=== PATIENT | male | born 1960 | race Caucasian/White ===

== ENCOUNTER → 2018-01-26 09:18 | Outpatient (CLI) | payer SELFPAY ==
[2018-01-26 10:50] LABS: ALB/GLOB Ratio 1.1 RATIO (0.9-2.4); AST(SGOT) 21 U/L (15-37); Alanine Aminotransfer ALT/SGPT 39 U/L (16-61); Albumin, Serum 3.8 g/dL (3.2-5.0); Alkaline Phosphatase 85 U/L (45-117); Anion Gap 7 (5-15); BUN 21 mg/dL (7-18); BUN/Creat Ratio 21.8 RATIO (10-20); Calcium,Total 8.7 mg/dL (8.5-10.1); Chloride 103 mmol/L (98-107); Creatinine, Serum 0.96 mg/dL (0.70-1.30); EST Glomerular Filtration Rate 85 mL/min (>60); Est Glom Filt Rate - Afr Amer 103 mL/min (>60); Globulin 3.6 g/dL (2.2-4.2); Glucose 143 mg/dL (74-106); Potassium 3.9 mmol/L (3.5-5.1); Protein, Total 7.4 g/dL (6.4-8.2); Sodium Level 136 mmol/L (136-145)
== END ==
PROVIDERS: Family Provider Family Medicine; PCP Family Medicine; Visit Provider Family Medicine
DX: E11.8 Type 2 diabetes mellitus with unspecified complications (principal)
CPT/HCPCS: 36415; 80053; 84403

== ENCOUNTER → 2019-03-11 | Outpatient (CLI) | payer SELFPAY ==
[2019-03-11 10:22] LABS: ALB/GLOB Ratio 1.1 RATIO (0.9-2.4); AST(SGOT) 21 U/L (15-37); Alanine Aminotransfer ALT/SGPT 37 U/L (16-61); Albumin, Serum 3.8 g/dL (3.2-5.0); Alkaline Phosphatase 77 U/L (45-117); Anion Gap 5 (5-15); BUN 18 mg/dL (7-18); BUN/Creat Ratio 19.3 RATIO (10-20); Calcium,Total 8.7 mg/dL (8.5-10.1); Chloride 104 mmol/L (98-107); Cholesterol 174 mg/dL (200); Creatinine, Serum 0.93 mg/dL (0.70-1.30); EST Glomerular Filtration Rate 88 mL/min (>60); Est Glom Filt Rate - Afr Amer 107 mL/min (>60); Globulin 3.5 g/dL (2.2-4.2); Glucose 121 mg/dL (74-106); High Density Lipoprotein 43 mg/dL; Potassium 3.9 mmol/L (3.5-5.1); Protein, Total 7.3 g/dL (6.4-8.2); Sodium Level 136 mmol/L (136-145); Triglycerides 62 mg/dL; Very Low Density Lipoprotein 12 mg/dL (5-40)
== END | disposition home or self-care (01) ==
PROVIDERS: Family Provider Family Medicine; PCP Family Medicine; Referring Provider Family Medicine; Visit Provider Family Medicine
DX: E11.8 Type 2 diabetes mellitus with unspecified complications (principal)
CPT/HCPCS: 36415; 80053; 80061

== ENCOUNTER → 2020-03-29 11:09 | Outpatient (CLI) | payer SELFPAY ==
[2020-03-29 15:50] LABS: AST(SGOT) 24 U/L (15-37); Alanine Aminotransfer ALT/SGPT 64 U/L (16-61); Albumin, Serum 3.9 g/dL (3.2-5.0); Alkaline Phosphatase 99 U/L (45-117); Anion Gap 8 (5-15); BUN 20 mg/dL (7-18); BUN/Creat Ratio 20.7 RATIO (10-20); Calcium,Total 8.9 mg/dL (8.5-10.1); Chloride 99 mmol/L (98-107); Cholesterol 137 mg/dL (200); Creatinine, Serum 0.97 mg/dL (0.70-1.30); EST Glomerular Filtration Rate 84 mL/min (>60); Est Glom Filt Rate - Afr Amer 102 mL/min (>60); Globulin 3.8 g/dL (2.2-4.2); Glucose 187 mg/dL (74-106); High Density Lipoprotein 40 mg/dL; Potassium 3.8 mmol/L (3.5-5.1); Protein, Total 7.7 g/dL (6.4-8.2); Sodium Level 134 mmol/L (136-145); Triglycerides 65 mg/dL; Very Low Density Lipoprotein 13 mg/dL (5-40)
== END ==
PROVIDERS: PCP Family Medicine; Referring Provider Family Medicine; Visit Provider Family Medicine
DX: E11.8 Type 2 diabetes mellitus with unspecified complications (principal)
CPT/HCPCS: 36415; 80053; 80061

== ENCOUNTER 2022-01-28 08:47 | Outpatient (CLI) | payer SELFPAY ==
[2022-01-28 10:38] LABS: ALB/GLOB Ratio 1.1 RATIO (0.9-2.4); AST(SGOT) 27 U/L (15-37); Alanine Aminotransfer ALT/SGPT 48 U/L (16-61); Albumin, Serum 3.8 g/dL (3.2-5.0); Alkaline Phosphatase 92 U/L (45-117); Anion Gap 8 (5-15); BUN 17 mg/dL (7-18); BUN/Creat Ratio 18.3 RATIO (10-20); Calcium,Total 8.8 mg/dL (8.5-10.1); Chloride 102 mmol/L (98-107); Cholesterol 133 mg/dL (200); Creatinine, Serum 0.93 mg/dL (0.70-1.30); EST Glomerular Filtration Rate 88 mL/min (>60); Est Glom Filt Rate - Afr Amer 106 mL/min (>60); Globulin 3.6 g/dL (2.2-4.2); Glucose 206 mg/dL (74-106); High Density Lipoprotein 38 mg/dL; Protein, Total 7.4 g/dL (6.4-8.2); Sodium Level 133 mmol/L (136-145); Triglycerides 110 mg/dL; Very Low Density Lipoprotein 22 mg/dL (5-40)
== END 2022-01-28 23:59 | disposition home or self-care (01) ==
LOC: MFPLAB 08:47
PROVIDERS: PCP Family Medicine; Visit Provider Family Medicine
DX: E11.8 Type 2 diabetes mellitus with unspecified complications (principal)
CPT/HCPCS: 36415; 80053; 80061

== ENCOUNTER → 2023-01-23 | Outpatient (CLI) | payer SELFPAY ==
[2023-01-23 10:35] LABS: ALB/GLOB Ratio 0.9 RATIO (0.9-2.4); AST(SGOT) 32 U/L (15-37); Alanine Aminotransfer ALT/SGPT 62 U/L (16-61); Albumin, Serum 3.7 g/dL (3.2-5.0); Alkaline Phosphatase 109 U/L (45-117); Anion Gap 8 (5-15); BUN 24 mg/dL (7-18); BUN/Creat Ratio 25.4 RATIO (10-20); Calcium,Total 9.5 mg/dL (8.5-10.1); Chloride 103 mmol/L (98-107); Cholesterol 125 mg/dL (200); Creatinine, Serum 0.94 mg/dL (0.70-1.30); EST Glomerular Filtration Rate 86 mL/min (>60); Est Glom Filt Rate - Afr Amer 104 mL/min (>60); Globulin 4.1 g/dL (2.2-4.2); Glucose 111 mg/dL (74-106); High Density Lipoprotein 35 mg/dL; Potassium 3.8 mmol/L (3.5-5.1); Protein, Total 7.8 g/dL (6.4-8.2); Sodium Level 135 mmol/L (136-145); Thyroid Stim Hormone (TSH) 7.31 uIU/mL (0.358-3.74); Triglycerides 81 mg/dL; Very Low Density Lipoprotein 16 mg/dL (5-40)
[2023-01-24 11:20] LABS: T4 Free Direct 0.86 ng/dL (0.76-1.46)
== END | disposition home or self-care (01) ==
PROVIDERS: PCP Family Medicine; Referring Provider Family Medicine; Visit Provider Family Medicine
DX: E07.9 Disorder of thyroid, unspecified (principal)
CPT/HCPCS: 36415; 80053; 80061; 84439; 84443

== ENCOUNTER → 2023-12-24 | Outpatient (CLI) | payer SELFPAY ==
[2023-12-24 11:51] LABS: ALB/GLOB Ratio 0.9 RATIO (0.9-2.4); AST(SGOT) 30 U/L (15-37); Alanine Aminotransfer ALT/SGPT 56 U/L (16-61); Albumin, Serum 3.7 g/dL (3.2-5.0); Alkaline Phosphatase 101 U/L (45-117); Anion Gap 5 (5-15); BUN 16 mg/dL (7-18); BUN/Creat Ratio 17.9 RATIO (10-20); Calcium,Total 9.4 mg/dL (8.5-10.1); Chloride 101 mmol/L (98-107); Cholesterol 131 mg/dL (200); Creatinine, Serum 0.89 mg/dL (0.70-1.30); EST Glomerular Filtration Rate 91 mL/min (>60); Est Glom Filt Rate - Afr Amer 110 mL/min (>60); Glucose 150 mg/dL (74-106); High Density Lipoprotein 35 mg/dL; PSA,Total - Annual Screen 1.13 ng/mL (0.00-4.00); Potassium 3.9 mmol/L (3.5-5.1); Protein, Total 7.7 g/dL (6.4-8.2); Sodium Level 131 mmol/L (136-145); T4 Free Direct 0.92 ng/dL (0.76-1.46); Thyroid Stim Hormone (TSH) 8.31 uIU/mL (0.358-3.74); Triglycerides 105 mg/dL; Very Low Density Lipoprotein 21 mg/dL (5-40)
== END | disposition home or self-care (01) ==
LOC: MFPLAB 09:20
PROVIDERS: PCP Family Medicine; Visit Provider Family Medicine
DX: Z12.5 Encounter for screening for malignant neoplasm of prostate (principal); E03.8 Other specified hypothyroidism
CPT/HCPCS: 36415; 80053; 80061; 84153; 84439; 84443; G0103

== ENCOUNTER → 2024-03-29 | Outpatient (CLI) | payer SELFPAY ==
[2024-03-29 10:59] LABS: Anion Gap 7 (5-15); BUN 18 mg/dL (7-18); BUN/Creat Ratio 19.7 RATIO (10-20); Calcium,Total 9.3 mg/dL (8.5-10.1); Chloride 101 mmol/L (98-107); Creatinine, Serum 0.91 mg/dL (0.70-1.30); EST Glomerular Filtration Rate 89 mL/min (>60); Est Glom Filt Rate - Afr Amer 107 mL/min (>60); Glucose 199 mg/dL (74-106); Potassium 4.1 mmol/L (3.5-5.1); Sodium Level 132 mmol/L (136-145); T4 Free Direct 1.21 ng/dL (0.76-1.46); Thyroid Stim Hormone (TSH) 2.64 uIU/mL (0.358-3.74)
== END | disposition home or self-care (01) ==
LOC: MFPLAB 08:32
PROVIDERS: PCP Family Medicine; Visit Provider Family Medicine
DX: E03.9 Hypothyroidism, unspecified (principal)
CPT/HCPCS: 36415; 80048; 84439; 84443

== ENCOUNTER → 2025-08-18 | Outpatient (CLI) | payer SELFPAY ==
[2025-08-18 12:44] LABS: Creatinine, Urine (random) 78.50 mg/dL (39.00-259.00); Microalbumin,Random Urine < 12.0 mg/L (<20 mg/L)
[2025-08-18 12:52] LABS: AST(SGOT) 22 U/L (<=37); Alanine Aminotransfer ALT/SGPT 31 U/L (<=46); Albumin, Serum 4.2 g/dL (3.4-4.8); Alkaline Phosphatase 84 U/L (40-129); Anion Gap 11 (5-15); BUN 25 mg/dL (4-19); BUN/Creat Ratio 28.8 RATIO (10-20); Calcium,Total 9.7 mg/dL (7.6-11.0); Carbon Dioxide 24.2 mmol/L (21.0-32.0); Chloride 101 mmol/L (98-108); Cholesterol 169 mg/dL (<=200); Globulin 2.9 g/dL (2.2-4.2); Glucose 154 mg/dL (70-99); Low Density Lipoprotein Calc. 110 mg/dL; PSA,Total - Annual Screen 1.56 ng/mL (0.02-4.00); Potassium 5.0 mmol/L (3.3-5.1); Triglycerides 60 mg/dL; Very Low Density Lipoprotein 12 mg/dL (5-40); cholesterol:hdl ratio screen 3.56
== END | disposition home or self-care (01) ==
LOC: MFPLAB 09:12
PROVIDERS: PCP Family Medicine; Referring Provider Family Medicine; Visit Provider Family Medicine
DX: Z12.5 Encounter for screening for malignant neoplasm of prostate (principal)
CPT/HCPCS: 80053; 80061; 82043; 82570; 84153; 84443; G0103